=== PATIENT | male | born 1950 | race Caucasian/White ===

== ENCOUNTER → 2022-08-29 11:26 | Outpatient (CLI) | payer MEDICARE, SELFPAY ==
--- NOTE | 2022-08-29 12:11 | XR_ITS ---
FINAL REPORT CLINICAL HISTORY: ACUTE FEBRILE ILLNESS FINDINGS: There is no evidence of effusion or other pleural disease. The mediastinum has a normal appearance. The cardiac silhouette is unremarkable. IMPRESSION: Unremarkable chest exam. Reviewed, Interpreted and Dictated by Parrish Ruelas MD Transcribed by Maurizio Salazar Authenticated and [facility]
[2022-08-29 12:21] LABS: Basophils % 0.3 % (0.1-2.0); Eosinophils # 0.1 K/mm3 (0.0-0.4); Eosinophils % 0.8 % (0.1-12.0); Hematocrit 43.7 % (42.0-52.0); Lymphocytes # 1.6 K/mm3 (0.7-4.5); Lymphocytes % 12.8 % (10-50); Mean Corpuscular HGB Conc 34.4 g/dL (31.8-35.4); Mean Corpuscular Hemoglobin 33.6 pg (27.0-31.2); Mean Corpuscular Volume 97.7 fl (80-94); Mean Platelet Volume 7.7 fl (7.4-10.4); Monocytes # 0.9 K/mm3 (0.1-1.0); Monocytes % 7.8 % (1.7-9.3); Neutrophils # 9.4 K/mm3 (1.8-7.8); Neutrophils % 78.2 % (37.0-80.0); Platelet Count 199 K/mm3 (142-424); Red Blood Count 4.47 M/mm3 (4.60-6.20); Red Cell Distribution Width 13.5 % (11.5-17.5)
[2022-08-29 12:33] LABS: Chloride 92 mmol/L (98-107); Potassium 3.8 mmoL/L (3.5-5.1); Sodium 131 mmol/L (136-145)
[2022-08-29 12:35] LABS: Blood Urea Nitrogen 12 mg/dl (9-20); Estimated Glomerular Filt Rate 111 ml/min (>60); GFR (African American) 134 ML/MIN (>60)
[2022-08-29 12:36] LABS: Alanine Aminotransferase 25 U/L (12-78); Albumin Level 3.3 g/dl (3.5-5.0); Albumin/Globulin Ratio 1.3 (1.1-1.8); Alkaline Phosphatase 91 U/L (38-126); Anion Gap 14.8 mEq/L (5-15); Aspartate Amino Transferase 27 U/L (17-59); Bilirubin,Total 0.5 mg/dl (0.2-1.3); Calcium 8.3 mg/dl (8.4-10.2); Carbon Dioxide 28 mmol/L (22.0-30.0); Globulin 2.6 g/dL (1.3-3.2); Glucose 264 mg/dl (74-100); Total Protein,Serum 5.9 g/dl (6.3-8.2)
== END ==
PROVIDERS: PCP Internal Medicine Adolescent Medicine; Visit Provider Internal Medicine Adolescent Medicine
DX: R50.9 Fever, unspecified (principal)
CPT/HCPCS: 36415; 71046; 80053; 85025; 87040

== ENCOUNTER 2023-10-15 09:17 | Emergency (ER) | payer MEDICARE, SELFPAY ==
[2023-10-15 09:30] VITALS: BP 163/78; PULSE 82; RESP 18; TEMP 36.6; O2SAT 94; BMI 37.8
--- NOTE | 2023-10-15 09:52 | ED_ITS ---
Discharge Plan Prescriptions Prescriptions: No Action citalopram 40 mg tablet 40 mg PO DAILY metoprolol succinate 100 mg tablet extended release 24 hr 100 mg PO DAILY omeprazole 40 mg capsule,delayed release(DR/EC) 40 mg PO DAILY simvastatin 40 mg tablet 40 mg PO DAILY furosemide 20 mg tablet 20 mg PO DAILY losartan 100 mg tablet 100 mg PO DAILY fluticasone propionate 50 mcg/actuation spray,suspension See Rx Instructions .ROUTE .COMPLEX Rx Instructions: see rx instructions metformin 500 mg tablet extended release 24 hr 500 mg PO BID Soliqua 100/33 100 unit-33 mcg/mL insulin pen See Rx Instructions .ROUTE .COMPLEX Rx Instructions: see rx instructions Referrals Follow up/Referrals: Jerson Alcala MD [Primary Care Provider] - See instructions Discharge ED Provider: aGrrison Umaña [facility] [place] HPI General Stated complaint: left eye pain/redness Mode of Arrival: Ambulatory Source of Information: Patient Limitations: No Limitations Time Seen by Provider: 10/15/23 09:52 Description of Symptoms (Recalled from Triage Doc. by RN): Pt's symptoms are left eye is irritated. He was exposed to possible pink eye. HEENT Symptoms (Recalled from RN notes): Yes Resp Symptoms (Recalled from RN notes): No Skin Symptoms (Recalled from RN notes): No MS Symptoms (Recalled from RN notes): No Functional Status (Recalled from RN notes): n/a History of Present Illness Provider Complaint: 72 yr old male presents for c/o left eye pain. pt states he has not had drainage mainly clear discharge. pt states he may have something in eye but has been exposed to pink eye Related Data Home Medications Medication Instructions Recorded Confirmed citalopram 40 mg tablet 40 mg PO DAILY 10/15/23 10/15/23 fluticasone propionate 50 See Rx Instructions .Route .COMPLEX 10/15/23 10/15/23 mcg/actuation nasal spray,suspension furosemide 20 mg tablet 20 mg PO DAILY 10/15/23 10/15/23 insulin glargine 100 See Rx Instructions .Route .COMPLEX 10/15/23 10/15/23 unit-lixisenatide 33 mcg/mL subcutaneous pen (Soliqua 100/33) losartan 100 mg tablet 100 mg PO DAILY 10/15/23 10/15/23 metformin 500 mg tablet,extended 500 mg PO BID 10/15/23 10/15/23 release 24 hr metoprolol succinate 100 mg 100 mg PO DAILY 10/15/23 10/15/23 tablet,extended release 24 hr omeprazole 40 mg capsule,delayed 40 mg PO DAILY 10/15/23 10/15/23 release simvastatin 40 mg tablet 40 mg PO DAILY 10/15/23 10/15/23 Allergies Allergy/AdvReac Type Severity Reaction Status Date / Time acetaminophen [From Percocet] Allergy Nausea Verified 10/15/23 09:45 hydrocodone Allergy Nausea Verified 10/15/23 09:45 oxycodone [From Percocet] Allergy Nausea Verified 10/15/23 09:45 Worker's Comp Is this a Worker's Comp case?: No [facility] Disclaimer: The information contained in this section may have been updated after the patient was seen, as this information can be updated by other users. Social History , [employer]) Smoking Status: Smoker, status unknown alcohol intake: never current occupational status: employed Travel in the last 8 weeks: None ROS Obtained: Yes All systems reviewed & no additional complaints except as documented Constitutional Constitutional: Reports system reviewed and no additional complaints, except as documented Eyes Eyes: Reports system reviewed and no additional complaints, except as doc umented, Reports as per HPI, Reports blurry vision, Reports eye discharge and Reports eye pain ENT Ears, Nose, Mouth, and Throat: Reports system reviewed and no additional complaints, except as documented Cardiovascular Cardiovascular: Reports system reviewed and no additional complaints, except as documented Respiratory Respiratory: Reports system reviewed and no additional complaints, except as documented Musculoskeletal Musculoskeletal: Reports system reviewed and no additional complaints, except as documented Integumentary/Breasts Skin/Breast: Reports system reviewed and no additional complaints, except as documented Neurologic Neurologic: Reports system reviewed and no additional complaints, except as documented Endocrine Endocrine: Reports system reviewed and no additional complaints, except as documented Hematologic/Lymphatic Henatologic/Lymphatic: Reports system reviewed and no additional complaints, except as documented Allergic/Immunologic Allergic/Immunologic: Reports system reviewed and no additional complaints, except as documented Physical Exam General General appearance: alert and in no apparent distress Eye Eye exam: Present PERRL and other (fb present) ENT ENT exam: Present normal exam Respiratory Respiratory exam: Present normal lung sounds bilaterally Cardiovascular Cardiovascular exam: Present regular rate and normal rhythm Neurological Exam Neurological exam: Present alert and oriented X3 Skin Skin exam: Present warm and intact Medical Decision Making Medical Records Medical records reviewed: Yes I reviewed the patient's medical records. Peng Inquiry Pt receiving controlled substance: No Peng was queried for this patient: No Vital Signs: 10/15/23 09:30 Temperature 97.9 F Temperature Source Oral Pulse Rate [Right Radial] 82 Respiratory Rate 18 Blood Pressure [Right Arm] 163/78 H Blood Pressure Mean [Right Arm] 106 Blood Pressure Source [Right Arm] Automatic Cuff Blood Pressure Position [Right Arm] Sitting 02 Sat by Pulse Oximetry 94 L Oxygen Delivery Method Room Air
[2023-10-15 10:07] VITALS: BP 165/88; PULSE 86; RESP 13; TEMP 36.7; O2SAT 94; BMI 37.7
--- NOTE | 2023-10-15 10:18 | HMH.EDGENADL ---
Discharge Plan Disposition Patient Disposition: Home, Self-Care Chief Complaint: Eye Problems Prescriptions Prescriptions: No Action citalopram 40 mg tablet 40 mg PO DAILY metoprolol succinate 100 mg tablet extended release 24 hr 100 mg PO DAILY omeprazole 40 mg capsule,delayed release(DR/EC) 40 mg PO DAILY simvastatin 40 mg tablet 40 mg PO DAILY furosemide 20 mg tablet 20 mg PO DAILY losartan 100 mg tablet 100 mg PO DAILY fluticasone propionate 50 mcg/actuation spray,suspension See Rx Instructions .ROUTE .COMPLEX Rx Instructions: see rx instructions metformin 500 mg tablet extended release 24 hr 500 mg PO BID Soliqua 100/33 100 unit-33 mcg/mL insulin pen See Rx Instructions .ROUTE .COMPLEX Rx Instructions: see rx instructions Referrals Follow up/Referrals: Jerson Alcala MD [Primary Care Provider] - See instructions Activity Restrictions/Add. Instructions Additional Instructions/Restrictions: At this time it was felt you are safe to be discharged home. If new or worsening symptoms please do not hesitate to return the emergency department. Please apply half a centimeter of erythromycin ointment to the inferior lid as shown twice a day for 5 days and blink to spread all around. Please follow-up with your eye doctor within 5 days. Clinical Impressions Clinical Impression: Foreign body, intraocular, left eye Discharge ED Provider: Garrison Umaña General Adult HPI General Stated complaint: left eye pain/redness Time Seen by Provider: 10/15/23 09:52 Mode of Arrival: Ambulatory Source of Information: Patient Limitations: No Limitations Description of Symptoms (Recalled from ER Triage Doc. by RN): Pt's symptoms are left eye is irritated. He was exposed to possible pink eye. History of Present Illness HPI narrative: Patient is a 72-year-old male who presents emergency department for evaluation of left eye irritation. He has had exposure to pinkeye last week and was transferred here due to concern for foreign body urgent care. 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 No other acute complaints at this time. Related Data Home Medications Medication Instructions Recorded Confirmed citalopram 40 mg tablet 40 mg PO DAILY 10/15/23 10/15/23 fluticasone propionate 50 See Rx Instructions .Route .COMPLEX 10/15/23 10/15/23 mcg/actuation nasal spray,suspension furosemide 20 mg tablet 20 mg PO DAILY 10/15/23 10/15/23 insulin glargine 100 See Rx Instructions .Route .COMPLEX 10/15/23 10/15/23 unit-lixisenatide 33 mcg/mL subcutaneous pen (Soliqua 100/33) losartan 100 mg tablet 100 mg PO DAILY 10/15/23 10/15/23 metformin 500 mg tablet,extended 500 mg PO BID 10/15/23 10/15/23 release 24 hr metoprolol succinate 100 mg 100 mg PO DAILY 10/15/23 10/15/23 tablet,extended release 24 hr omeprazole 40 mg capsule,delayed 40 mg PO DAILY 10/15/23 10/15/23 release simvastatin 40 mg tablet 40 mg PO DAILY 10/15/23 10/15/23 Allergies Allergy/AdvReac Type Severity Reaction Status Date / Time acetaminophen [From Percocet] Allergy Nausea Verified 10/15/23 09:45 hydrocodone Allergy Nausea Verified 10/15/23 09:45 oxycodone [From Percocet] Allergy Nausea Verified 10/15/23 09:45 PFSH PFS Disclaimer: The information contained in this section may have been updated after the patient was seen, as this information can be updated by other users. Social History (Updated 10/15/23 @ 10:02 by Ivett Law ([facility]), [employer]) Smoking Status: Smoker, status unknown alcohol intake: never current occupational status: employed Travel in the last 8 weeks: None ROS Obtained: Yes Systems reviewed as appropriate & no additional complaints except as documented Physical Exam General General appearance: alert and in no apparent distress Head Head exam: atraumatic and normocephalic Eye Eye exam: Present PERRL, EOMI, conjunctival redness and other (Foreign body cornea punctate) ENT ENT exam: Present mucous membranes moist Neck Neck exam: Present normal inspection Chest Chest inspection: Present normal inspection and symmetric chest wall rise Respiratory Respiratory exam: Absent respiratory distress Cardiovascular Cardiovascular exam: Present regular rate and normal rhythm Abdominal Exam Abdominal exam: Present soft Extremities Exam Extremities exam: Present normal inspection Neurological Exam Neurological exam: Present alert and CN II-XII intact Psychiatric Psychiatric exam: Present normal affect Skin Skin exam: Present warm and dry Medical Decision Making Peng Inquiry Pt receiving controlled substance: No Vital Signs: 10/15/23 09:30 Temperature 97.9 F Temperature Source Oral Pulse Rate [Right Radial] 82 Respiratory Rate 18 Blood Pressure [Right Arm] 163/78 H Blood Pressure Mean [Right Arm] 106 Blood Pressure Source [Right Arm] Automatic Cuff Blood Pressure Position [Right Arm] Sitting 02 Sat by Pulse Oximetry 94 L Oxygen Delivery Method Room Air Medical Decision Narrative: In summary patient is 72-year-old male presents emergency department for conjunctival injection and possible foreign body as a transfer from urgent care. Patient is hemodynamically stable upon arrival. Slit-lamp performed shows metallic foreign body embedded in the cornea which was removed with success. Patient will take erythromycin ointment twice a day for 5 days and will follow-up with his eye doctor within the next 5 days and was given return precautions. Procedure: Procedure performed with ocular foreign body removal and slit-lamp exam. Using the slit-lamp it was appropriately adjusted to inspect the cornea which shows punctate metallic foreign body. Ocular pressure 12.3 mmHg of the left eye. Topical numbing with tetracaine administered. Punctate foreign body identified and removed tediously with 25-gauge needle bevel out with success. Inspection of the remainder of the cornea shows diffuse conjunctival injection, no other foreign bodies. Patient tolerated procedure well. There were no immediate complications. Critical Care Critical Care Time Critical Care Time: No
[2023-10-15 10:26] VITALS: BP 165/88; PULSE 86; RESP 13; TEMP 36.7
== END 2023-10-15 10:28 | disposition home or self-care (01) ==
LOC: UTC 09:21 → ER 09:59
PROVIDERS: Emergency Provider Emergency Medicine; PCP Internal Medicine Adolescent Medicine
DX: T15.02XA Foreign body in cornea, left eye, initial encounter (principal); W45.8XXA Other foreign body or object entering through skin, initial encounter; W44.E0XA Non-magnetic metal object unspecified, entering into or through a natural orifice, initial encounter
CPT/HCPCS: 65222; 99283